=== PATIENT | female | born 1980 | race Caucasian/White ===

== ENCOUNTER 2021-06-27 03:24 | Emergency (ER) | payer BC, OTHER ==
[~2021-06-27] VITALS: Ht 162.6 cm; Wt 90.7 kg
[2021-06-27 04:42] LABS: Basophils # (auto) 0 10 ^3/uL (0-0.2); Eosinophils # (auto) 0 10 ^3/uL (0-0.8); Eosinophils % (auto) 0.1 % (0.0-7.0); White Blood Cell 4.8 10^3/uL (4.4-10.8)
[2021-06-27 04:44] LABS: Basophils % (auto) 0.7 % (0.0-2.0); Hematocrit 23.8 % (36.0-46.0); Lymphocytes # (auto) 0.8 10 ^3/uL (0.4-5.4); Lymphocytes % (auto) 16.6 % (10.0-50.0); Mean Corpuscular Hemoglobin 18.4 pg (28.0-32.0); Mean Corpuscular Hgb Conc. 28.9 g/dL (32.0-36.0); Mean Corpuscular Volume 63.7 fL (80.0-100.0); Monocytes # (auto) 0.1 10 ^3/uL (0-1.3); Monocytes % (auto) 2.5 % (0.0-12.0); Neutrophils # (auto) 3.8 10 ^3/uL (1.6-8.6); Neutrophils % (auto) 80.1 % (37.0-80.0); Nucleated Red Blood Cells % 0.1 %; Red Blood Cells 3.74 10^6/uL (4.0-5.20); Red Cell Distribution Width 19.8 % (11.8-14.3)
[2021-06-27 04:48] LABS: Albumin 3.2 g/dL (3.4-5.0); Calcium 8.4 mg/dL (8.5-10.1); Magnesium 2.6 mg/dL (1.6-2.6); Potassium 3.6 mmol/L (3.5-5.1)
[2021-06-27 04:51] LABS: Hemoglobin 6.9 g/dL (12.2-16.2); Partial Thromboplastin Time 25.1 sec (23.6-33.0)
[2021-06-27 04:54] LABS: BUN/Creatinine Ratio 14.5; Bilirubin, Total 0.6 mg/dL (0.2-1.0); Total Protein 7.6 g/dL (6.4-8.2)
[2021-06-27] MEDS ORDERED: SODIUM CHLORIDE 0.9% 1,000 ML IV ONE (06:00)
[2021-06-27] MEDS ORDERED: MORPHINE SULFATE 4 MG/ML SYR/VIAL IV ONE (06:00)
[2021-06-27] MEDS ORDERED: ONDANSETRON HCL 4 MG/2 ML VIAL IV ONE ×2 (06:00→08:15)
[2021-06-27] MEDS ORDERED: FAMOTIDINE (10MG/ML) 2ML VL IV ONE (06:00)
[2021-06-27] MEDS ORDERED: LORazepam 2MG/ML-1ML VIAL IV ONE (06:00)
[2021-06-27] MEDS ORDERED: ONDANSETRON HCL 4 MG/2 ML VIAL ONE (06:08)
[2021-06-27 07:03] LABS: Lactic Acid w/Reflex 2.7 mmol/L (0.4-2.0)
[2021-06-27] MEDS ORDERED: IOHEXOL 300 MG/ML 100ML BOTTLE IJ ONE (08:08)
[2021-06-27] MEDS ORDERED: MORPHINE SULFATE INJECTION 2 MG/ML SYRG IV ONE (08:15)
[2021-06-27 08:21] VITALS: BP 133/63
[2021-06-27 08:36] VITALS: BP 146/71
[2021-06-27] MEDS ORDERED: HYDROmorphone HCL 2 MG/ML VL IV ONE (09:30)
[2021-06-27 10:11] VITALS: BP 119/72
[2021-06-27 10:13] VITALS: BP 119/72
== END 2021-06-27 10:34 | disposition short-term general hospital (02) ==
LOC: ER 03:24
DX: D64.9 Anemia, unspecified (principal); R10.13 Epigastric pain; Z20.822 Contact with and (suspected) exposure to COVID-19
CPT/HCPCS: 36415; 36430; 71045; 74177; 80053; 83605; 83735; 83880; 84484; 84702; 85025; 85610; 85730; 86850; 86900; 86901; 86920; 87426; 93005; 96374; 96375; 96376; 99285; J1170; J2060; J2270; J2405; J3490; J7040; P9016; Q9967